=== PATIENT | female | born 1940 | race Caucasian/White ===

== ENCOUNTER → 2016-08-10 | Outpatient (CLI) | payer MEDICARE ==
[~2016-08-10] MED LIST: ADVIL200 M2 PO; AMLODIPINE BESY10 MG PO; ASPIRIN81 M1; ASPIRIN81 M2 PO; AVASTATIN; FISH OIL 1,0001 CA2 PO; KEPPRA500 M1 PO; KLONOPIN; KLONOPIN0.5 MG PO; LIPITOR40 MG PO; MOBIC PO; NIACIN500 M1; NIACIN500 M1 PO; NORVASC; PLENDIL PO; PRILOSEC PO; SERZONE PO; SIMVASTATIN40 MG PO; SYNTHROID PO; TEGRETOL PO; TUMS500 MG PO; TYLENOL #3; VITAMIN D50000 UNIT PO; VYTORIN 10/20 T1 TAB PO; ZOCOR
--- NOTE | ~2016-08-10 | MR17 ---
[facility] A Service of [facility] & [facility] RADIOLOGY TEXT RESULTS PATIENT: TEO ALEXIS LOCATION: [facility] : 44 UNIT #: [id number] AGE: [address]: Ochoa Francois II, MD SEX: F ORDER DR: [id number] [facility] [address] [place], [place] [address] [id number] O MR#: [id number] Acc #: [id number] NAME: TEO ALEXIS. : 1940 SEX: F STUDY DATE/TIME: 08/10/2016 8:20 UNIT: [facility] ROOM: STUDY DESCRIPTION: MR Brain WWo Contrast Attending Physician: Ochoa Francois II., M.D. Referring Physician: Ochoa Francois II., M.D. Ordering Physician: Ochoa Francois II., M.D. Primary Care Physician: Erick Wilson M.D. MRI CENTER REPORT This report is preliminary unless electronic signature is present. EXAM MRI of the brain with and without contrast dated 08/10/2016 COMPARISON MRI brain with and without contrast dated 08/11/2010. HISTORY Patient has seizures since mid 30s. Patient had a history of fall and hit back of the head. Last seizure was in August 2010. Patient is now seeing a new neurologist and getting a follow up done. FINDINGS Multisequence, multiplanar imaging of the brain was obtained with and without contrast. GFR measured greater than 60. 16 mL of MultiHance was administered intravenously. No acute intracranial hemorrhage, hydrocephalus, space occupying mass or midline shift. Scattered few hyperintense T2 signal lesions are noted in the white matter particularly in the periventricular region. Vascular flow voids of the major cerebral arteries and dural venous sinuses are not obstructed in these thicker slices. Nasal septum is deviated to the left. Mild paranasal sinus mucosal thickening is noted. Imaged orbits with the ocular structures are unremarkable. Mild bilateral mastoid mucosal thickening is seen. Thick slices through the sella with the pituitary gland, pineal region are unremarkable. Mild degenerative changes are noted in the imaged cervical spine. 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 Postcontrast sequences do not demonstrate enhancing lesions. Thin coronal T2 sequence through the hippocampal formations do not demonstrate any significant abnormality. IMPRESSION 1. 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 [facility] A Service of [facility] & [facility] RADIOLOGY TEXT RESULTS PATIENT: TEO ALEXIS [facility] UNIT #: [id number] AGE: [address]: Ochoa Francois II, MD SEX: F ORDER DR: ischemic change or migraine based on age and statistics. It is stable to minimally worse if any. 2. No enhancing mass, stroke, hydrocephalus, enhancing mass or abnormal new lesions. Dictated by... Alphonso Juarez M.D. THIS IS AN ELECTRONICALLY VERIFIED REPORT Alphonso Juarez M.D. at 08/10/2016 3:49 PM CPR/leonel TD: 08/10/2016 12:52 JOB #: [id number] MRI CENTER REPORT Page 1 of 1 COPY
[2016-08-10 08:17] LABS: POC - CREATININE 0.71 mg/dL (0.44-1.03); POC - GFR >60.0 mL/min (>60)
== END | disposition home or self-care (01) ==
LOC: CMRI 07:30
PROVIDERS: Psychiatry & Neurology Neurology
DX: G40.309 Generalized idiopathic epilepsy and epileptic syndromes, not intractable, without status epilepticus (principal); M89.9 Disorder of bone, unspecified
CPT/HCPCS: 70553; 82565; A9577

== ENCOUNTER → 2016-08-17 | Outpatient (CLI) | payer MEDICARE ==
--- NOTE | ~2016-08-17 | EE ---
Unit #: [id number] #: [id number] Patient: TEO ALEXIS [id number] [address] [address] [id number] O MR#: [id number] NAME: TEO ALEXIS. : 1940 SEX: F STUDY DATE/TIME: 08/17/2016 UNIT: CEEG ROOM: STUDY DESCRIPTION: EEG Attending Physician: Ochoa Francois II., M.D. Primary Care Physician: Erick Wilson M.D. NEURODIAGNOSTICS REPORT EXAM EEG. REASON FOR STUDY Seizure. TECHNICAL INFORMATION This is a routine EEG performed using the standing International 10-20 system of electrode placement. Hyperventilation was not performed. Photic stimulation was performed. REPORT Throughout the entire study, the best background rhythm seen is approximately 11 Hz. This rhythm is seen in both posterior head regions symmetrically and does attenuate to eye opening and closure. Photic stimulation was performed which did not elicit any epileptiform abnormalities; however, good photic driving response was seen. Hyperventilation was not performed. Throughout the entire study, there was no sleep recorded. There were no electrographic seizures recorded during this study nor were there any independent epileptiform abnormalities seen. INTERPRETATION This is a normal awake EEG. A normal EEG does not rule out the possibility of a seizure disorder. Clinical correlation is advised. Dictated by... Ochoa Francois II., M.D. GWS/jairo TD: 08/22/2016 09:27 JOB #: [id number] Unit #: [id number] #: [id number] Patient: TEO ALEXIS NEURODIAGNOSTICS REPORT Page 1 of 1 X NEURODIAGNOSTICS REPORT
== END | disposition home or self-care (01) ==
LOC: CEEG 08:58
DX: G40.309 Generalized idiopathic epilepsy and epileptic syndromes, not intractable, without status epilepticus (principal)
CPT/HCPCS: 95816